=== PATIENT | female | born 1940 | race Caucasian/White ===

== ENCOUNTER 2024-01-30 09:23 | Outpatient (CLI) | payer OTHER, SELFPAY ==
--- NOTE | 2024-01-30 10:15 | MR_ITS ---
WS: [id number] MRI HEAD WITHOUT CONTRAST TECHNIQUE: Sagittal T1, T2 axial, T2 axial FLAIR, axial and coronal T1 images, axial susceptibility w eighted imaging, axial diffusion weighted images, and coronal T2 images were obtained. CLINICAL INFORMATION: R51.9 - Headache, unspecified COMPARISON: None. FINDINGS: Heterogeneous RIGHT CP angle mass extending into the IAC. Gadolinium not administered. Asso ciated mass effect on the anna marie although no significant underlying edema. CP angle lesion measures tessa roximately 2.4 x 1.3 cm. Associated internal cystic change. Findings most compatible with vestibular schwannoma. This can be further evaluated with gadolinium. Recommend ENT consultation. Slight contact of the RIGHT trigeminal nerve root entry zone. No evidence of restricted diffusion to suggest acute ischemia. Ventricular system and basilar cistern s are patent. Mild small vessel changes. Moderate parenchymal volume loss worse in the parietal lobes . Normal vascular flow voids at the skull base. No extra-axial fluid collections. Paranasal sinuses a re well aerated. Normal posterior nasopharynx. No hemosiderin on the susceptibly weighted images. Normal optic chiasm and pituitary infundibulum. MR/MR head wo con* [id number] IMPRESSION: 1. Large heterogeneous RIGHT CP angle mass extending into the RIGHT proximal I CA most compatible with vestibular schwannoma measuring 2.5 x 1.2 cm. Associate d internal and peripheral cystic change. This can be further evaluated with riki olinium. 2. Associated significant mass effect on the anna marie with RIGHT to LEFT displacem ent and parenchymal compression. No underlying edema. 3. No other acute findings. Message LEFT for Bella Mackay MD at 01/30/2024 2:32 PM.
== END 2024-01-30 09:24 | disposition home or self-care (01) ==
LOC: RAD 09:25
PROVIDERS: Visit Provider Specialist
DX: R22.0 Localized swelling, mass and lump, head (principal); R51.9 Headache, unspecified; R26.9 Unspecified abnormalities of gait and mobility; R42 Dizziness and giddiness
CPT/HCPCS: 70551

== ENCOUNTER 2024-02-08 10:29 | Outpatient (CLI) | payer OTHER, SELFPAY ==
--- NOTE | 2024-02-08 11:00 | MR_ITS ---
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 Additional 3 mm imaging performed in multiple planes through the internal auditory canal. Postcontrast imaging with 16 ml's of MultiHance. No acute intracranial hemorrhage, midline shift, edema or mass effect. Mild small vessel ischemic changes. Moderate parenchymal volume loss, greatest involving the parietal lobes. No hemosiderin or prior hemorrhage. Ventricles and extra-axial spaces are very mildly dilated on the basis of central and peripheral atro phy. No inferior displacement of cerebellar tonsils. Clivus and pituitary gland are normal. Reidentified is a large heterogeneous cerebellopontine angle mass extending into the proximal RIGHT i nternal auditory canal. This mass was recently identified on 01/30/2024. Mass is reidentified and dem onstrates near diffuse intense enhancement. There are a few cystic spaces which do not enhance. Mass extends into the RIGHT internal auditory canal. There is also mass effect upon the RIGHT anna marie but no edema in the anna marie itself. Mass transversely measures 2.2 cm x 1.8 cm anterior posterior by 1.5 cm sup erior-inferior. No additional areas of abnormal enhancement. Paranasal sinuses: Normal. Mastoid air cells: Normal. Calvarium and scalp: Normal. Visualized [place] and dural venous sinuses demonstrate no abnormality. MR/MR iac's wo/w con* [id number] IMPRESSION: 1. Intensely enhancing mass with a few nonenhancing cystic spaces centered at the RIGHT cerebellopontine angle extending into the proximal IAC. Mass measures 2.2 x 1.8 x 1.5 cm. There is mass effect upon the cerebellum and RIGHT anna marie. N o underlying ischemic changes or edema. This is most consistent with a vestibul ar schwannoma. 2. No additional mass or abnormal enhancement within the brain or posterior fo ssa.
== END 2024-02-08 10:30 | disposition home or self-care (01) ==
LOC: RAD 10:29
PROVIDERS: Visit Provider Specialist
DX: D33.3 Benign neoplasm of cranial nerves (principal); H81.10 Benign paroxysmal vertigo, unspecified ear
CPT/HCPCS: 70553; A9577